=== PATIENT | female | born 2000 | race Caucasian/White ===

== ENCOUNTER 2023-08-14 11:37 | Inpatient (IN) ==
[2023-08-14] MEDS ORDERED: Lidocaine 1% VIAL 10 MG/ML 30 ML VIAL INJ PRN (11:59)
[2023-08-14] MEDS ORDERED: Buffered Lidocaine 1% SYRIN 1 ml INTRADERM ONE (11:59)
[2023-08-14] MEDS: Lactated Ringers 1000 ml BAG 1,000 ML IV ONE (12:15)
[2023-08-14 12:30] LABS: ABS Basophils 0.1 10^3/uL (0.0-0.1); ABS Lymphocytes 1.5 10^3/uL (1.0-4.8); ABS Monocytes 0.4 10^3/uL (0.0-0.9); ABS Neutrophils 4.5 10^3/uL (1.5-7.6); ABS Nucleated RBC 0.01 10^3/ul; Eosinophil % 0.4 %; Hematocrit 33.9 % (35-45); Hemoglobin 10.8 g/dL (11.5-14.3); Lymphocyte % 23.4 %; Mean Corpuscular Hemoglobin 25.9 pg (27-33); Mean Platelet Volume 10.8 fL (7.5-11.2); Nucleated Red Blood Cells % 0.1 %/100WBC (0.0-0.8); Platelet Count 210 10^3/uL (150-450); Red Blood Count 4.18 10^6/uL (3.63-4.92); Red Cell Distribution Width 15.9 % (12-17); White Blood Count 6.5 10^3/uL (3.8-11.8)
[2023-08-14 12:47] LABS: ALT 22 U/L (7-52); AST 35 U/L (13-39); Albumin 3.6 g/dL (3.2-5.2); Albumin/Globulin Ratio 0.9 (1-3); Alkaline Phosphatase 432 U/L (35-149); Anion Gap 11 mmol/L (2-16); Blood Urea Nitrogen 10 mg/dL (6-24); CO2 Carbon Dioxide 19 mmol/L (22-32); Calcium 9.2 mg/dL (8.6-10.3); Chloride 105 mmol/L (101-111); Creatinine, Serum 0.68 mg/dL (0.51-0.95); Globulin 3.8 g/dL (2-4); Glucose 81 mg/dL (70-100); Potassium 3.7 mmol/L (3.5-5.0); Sodium 135 mmol/L (135-145); Total Bilirubin 0.5 mg/dL (0.2-1.0); Total Protein 7.4 g/dL (6.4-8.9); Uric Acid 6.2 mg/dL (2.3-6.6)
[2023-08-14 13:06] LABS: Urine Benzodiazepine Screen None Detected (None Detect); Urine Cannabinoids Screen None Detected (None Detect); Urine Opiates Screen None Detected (None Detect)
[2023-08-14] MEDS: Penicillin G Potassium IV 5,000,000 UNITS in NS 0.9% 100 ML BAG IVPB ONE (13:25)
[2023-08-14 13:42] LABS: Rubella Screen IgG Immune (Immune)
[2023-08-14 14:01] LABS: HIV 4th Generation Nonreactive (Nonreactive)
[2023-08-14] MEDS ORDERED: miSOPROStol 100 mcg TAB PO ONE (15:39)
[2023-08-14] MEDS ORDERED: Lidocaine 1.5% EPI 1:200,000 30 ML SDV ONE (15:41)
[2023-08-14] MEDS: Lactated Ringers 1000 ml BAG 1,000 ML IV SCH (16:17)
[2023-08-14] MEDS ORDERED: Oxytocin in LR 20,000 MILLI.UNIT/1,000 ML BAG IV ONE (16:48)
[2023-08-14] MEDS: Oxytocin in LR 20,000 MILLI.UNIT/1,000 ML BAG IV SCH (16:50)
[2023-08-14] MEDS ORDERED: Glycerin ADULT 2.4 gm SUPP PR PRN (16:51)
[2023-08-14] MEDS ORDERED: Lactated Ringers 1000 ml BAG 1,000 ML IV SCH (17:00)
[2023-08-14] MEDS: Betamethasone 6 mg/ml 5 ml VIAL IM ONE (17:15)
[2023-08-14] MEDS: OBEPIDURAL (200 ML) 0 ML EPIDURAL ONE (17:16)
[2023-08-14] MEDS ORDERED: Penicillin G Potassium IV 3,000,000 UNITS in NS 0.9% 100 ml BAG 100 ML IVPB SCH (17:30)
[2023-08-14] MEDS: Witch Hazel PAD JAR TOPICAL PRN (17:51)
[2023-08-14] MEDS: Dibucaine 1% OINT 28.35 GM TUBE PR PRN (17:51)
[2023-08-14 18:15] LABS: Hepatitis B Surface Antigen Nonreactive (Nonreactive)
[2023-08-14 18:33] LABS: Hepatitis C Antibody Negative (Negative)
[2023-08-15 06:49] LABS: ABS Eosinophils 0.1 10^3/uL (0.0-0.5); ABS Lymphocytes 2.6 10^3/uL (1.0-4.8); ABS Monocytes 0.7 10^3/uL (0.0-0.9); ABS Neutrophils 5.8 10^3/uL (1.5-7.6); ABS Nucleated RBC 0.02 10^3/ul; Hematocrit 25.3 % (35-45); Hemoglobin 8.2 g/dL (11.5-14.3); Lymphocyte % 27.8 %; Mean Corpuscular Hemoglobin 26.3 pg (27-33); Mean Corpuscular Hgb Conc 32.5 g/dL (31-36); Mean Corpuscular Volume 80.9 fL (80-97); Nucleated Red Blood Cells % 0.2 %/100WBC (0.0-0.8); Platelet Count 166 10^3/uL (150-450); Red Blood Count 3.12 10^6/uL (3.63-4.92); Red Cell Distribution Width 15.5 % (12-17); White Blood Count 9.2 10^3/uL (3.8-11.8)
[2023-08-15] MEDS ORDERED: Influenza vaccine *QUAD* *2023-24* 0.5 ML SYRINGE IM ONE (09:00)
[2023-08-16 07:33] VITALS: BP 128/82
[2023-08-16] MEDS: Influenza vaccine *QUAD* *2023-24* 0.5 ML SYRINGE IM ONE (08:53)
== END 2023-08-16 20:20 | disposition home or self-care (01) | DRG 807 ==
LOC: MCHOBOUT 11:37 → MCHOB 12:07
PROVIDERS: ADMIT Obstetrics & Gynecology; ATTEND Obstetrics & Gynecology